=== PATIENT | female | born 2000 | race African-American/Black ===

== ENCOUNTER 2020-04-30 03:01 | Inpatient (IN) | payer MEDICAID ==
[~2020-04-30] VITALS: Ht 170.2 cm; Wt 81.2 kg
[2020-04-30] VITALS (9 sets, daily range): BP systolic 103–166; BP diastolic 56–101; Ht 170.2 cm; Wt 81.2 kg
[2020-04-30 03:27] LABS: UDS - AMPHET NEGATIVE QUAL (NEGATIVE); UDS - BARB NEGATIVE QUAL (NEGATIVE); UDS - BENZO NEGATIVE QUAL (NEGATIVE); UDS - COCAINE NEGATIVE QUAL (NEGATIVE); UDS - OPIATE NEGATIVE QUAL (NEGATIVE); UDS - PCP NEGATIVE QUAL (NEGATIVE); UDS - THC NEGATIVE QUAL (NEGATIVE)
[2020-04-30 03:30] LABS: BILIRUBIN NEGATIVE (NEGATIVE); GLUCOSE NEGATIVE (NEGATIVE); KETONE NEGATIVE (NEGATIVE); NITRITE NEGATIVE (NEGATIVE); SPECIFIC GRAVITY 1.005 (1.005-1.020); UROBILINOGEN NORMAL (NORMAL)
[2020-04-30 03:32] LABS: BACTERIA FEW /hpf (NEGATIVE); EPITHELIAL CELLS 0-5 /hpf (0-5); RED CELLS - URINE 0-5 /hpf (0-5); WHITE CELLS - URINE 0-5 /hpf (NEGATIVE)
[2020-04-30] MEDS ORDERED: PRENAVITE1 TAB PO (04:50)
[2020-04-30 04:53] LABS: CALC OSMOLALITY 270 mosm/kg (275-300); CALCIUM 9.2 mg/dL (8.5-10.1); CARBON DIOXIDE 23.6 mmol/L (21.0-32.0); CHLORIDE - SERUM 101 mmol/L (98-107); CREATININE - SERUM 0.7 mg/dL (0.6-1.3); GLUCOSE 84 mg/dL (74-106); POTASSIUM - SERUM 3.5 mmol/L (3.5-5.1); SODIUM 137 mmol/L (136-145); UREA NITROGEN 8 mg/dL (7-18); eGFR NON AFRICAN AMERICAN > 90 mL/min (90-120)
[2020-04-30 04:59] LABS: ALKALINE PHOSPHATASE 115 U/L (30-120); ALT (SGPT) 43 U/L (10-68); BILIRUBIN - DIRECT 0.05 mg/dL (0.00-0.30); BILIRUBIN - TOTAL 0.15 mg/dL (0.2-1.3); HEMATOCRIT 40.1 % (36.0-48.0); HEMOGLOBIN 13.3 g/dL (12-16); MCH 28.8 pg (26.0-34.0); MCHC 33.2 g/dL (31.0-37.0); MCV 86.8 fL (80.0-100.0); MEAN PLATELET VOLUME 9.8 fL (7.4-10.4); PROTEIN - SERUM 7.4 g/dL (6.4-8.2); RBC 4.62 10x6/uL (4.00-5.40); RDW 16.3 % (11.5-14.5); WBC 6.6 10x3/uL (4.8-10.8)
--- NOTE | 2020-04-30 17:10 | NUR ---
PAIN REASSESSMENT COMPLETED. DENIES PAIN AT THIS TIME. SITTING IN HIGH FOWLERS POSITION ON CELL PHONE. DENIES NEEDS. INFANT IN NBN. PT'S MOTHER REMAINS AT BEDSIDE, SUPPORTIVE AND ATTENTIVE TO PT NEEDS. BED IN LOW POSITION WITH SRUP X2. CALL LIGHT AND PHONE WITHIN REACH. SCD'S ON BLE. WILL CONTINUE TO MONITOR.
--- NOTE | 2020-04-30 17:34 | NUR ---
MGSO4 CHECK PER FLOWSHEET. NEW BAG 1/2 NS HUNG TO CONTINUE TO INFUSE AT 50 MLS/HR VIA PUMP. NBN CONTACTED AND PT GIVEN UPDATE ON INFANT PER HER REQUEST. REQUEST MORE [employer] AND PROVIDED PER REQUEST. BED IN LOW POSITION WITH SRUP X2. CALL LIGHT AND PHONE WITHIN REACH. WILL CONTINUE TO MONITOR.
--- NOTE | 2020-04-30 18:29 | NUR ---
MGSO4 CHECK DONE PER FLOWSHEET. PERICARE DONE, PADS AND CHUX CHANGED. FUNDUS REMAINS FIRM, MIDLINE AND U2 WITH SMALL AMT RUBRA LOCHIA, NO CLOTS NOTED. SCDS ON BLE. TUXS PLACED. DENIES NEEDS AND PAIN. BED IN LOW POSITION WITH SRUP X2. CALL LIGHT AND PHONE WITHIN REACH. LIGHTS OFF.
--- NOTE | 2020-04-30 19:21 | NUR ---
PATIENT RESTING QUIETLY WITH EYES CLOSED, NO DISTRESS NOTED. EASILY AROUSED TO VERBAL. BP WNL, DTR'S +2, RESPIRATIONS EVEN AND NON LABORED, IV SITE REMAINS PATENT, NO REDNESS, SWELLING OR INFILTRATION NOTED. JACK CATHETER NOTED TO HAVE 35 ML CLEAR YELLOW URINE. PT DENIES PAIN OR NEEDS. PERIPAD WITH SMALL AMT OF BLEEDING, NO CLOTS NOTED. SCD'S REMAIN ON BILATERALLY, REMOVED FOR INSPECTION AND REPLACED. MOTHER REMAINS AT BEDSIDE FOR SUPPORT. WILL CONTINUE TO MONITOR.
--- NOTE | 2020-04-30 20:21 | NUR ---
PATIENT RSTING QUIETLY WITH EYES CLOSED, JACK CATHETER DRAINING TO GRAVITY- 185ML CLEAR YELLOW URINE NOTED IN UROMETER. IV REMAINS PATENT AND INFUSING PER MD ORDERS. NO DISTRESS NOTED. WILL CONTINUE TO MONITOR.
--- NOTE | 2020-04-30 21:21 | NUR ---
PATIENT SLEEPING, EASILY AROUSED TO VERBAL. JACK DRAINING TO GRAVITY, 140 ML CLEAR YELLOW URINE NOTED IN UROMETER. REFLEXES +2, RESPIRATIONS EVEN AND NON LABORED. NO NEEDS IDENTIFIED.
--- NOTE | 2020-04-30 21:40 | NUR ---
SPRITE PROVIDED PER PT REQUEST
--- NOTE | 2020-04-30 22:21 | NUR ---
PATIENT LYING ONHER RIGHT SIDE WITH EYES CLOSED AND EVEN RESPIRATIONS. DENIES PAIN OR NEEDS AT THIS TIME. WILL CONTINUE TO MONITOR.
--- NOTE | 2020-04-30 22:59 | NUR ---
SPRITE PROVIDED PER PT REQUEST
--- NOTE | 2020-05-01 00:21 | NUR ---
PATIENT RESTING QUIETLY WITH EYES CLOSED, NO DISTRESS NOTED. EASILY AROUSED TO VERBAL. JACK CATHETER REMOVED AT THIS TIME WITHOUT INCIDENT. 200 ML CLEAR YELLOW URINE NOTED IN UROMETER. VITAL SIGNS WNL, BLEEDING REMAINS SMALL,RUBRA WITH NO CLOTS. IV FLUIDS DISCONTINUED, IV SALINE LOCKED. SCD'S REMOVED AND PATIENT AMBULATORY TO BATHROOM. PERICARE DONE, TUCKS PADS, CLEAN PERIPAD AND PANTIES PLACED. PATIENTS SHEETS CHANGED. PT AMBULATING IN HALLWAY TO NURSERY. PTS MOTHER AT HER SIDE. PTS MOTHER GOT SPRITE AND PUDDING FOR THE PATIENT. PT DENIES PAIN OR OTHER NEEDS AT THIS TIME. WILL CONTINUE TO MONITOR.
--- NOTE | 2020-05-01 01:10 | NUR ---
CODE BLUE BUTTON PULLED BY PATIENTS FAILY MEMBER, STATES THAT SHE WAS TRYING TO TURN ON THE LIGHT. CODE BLUE CANCELLED WITH MARKET SURVEY REPRESENTATIVE. PT SITTING UP IN BED. NO DISTRESS NOTED. NO NEEDS IDENTIFIED. WILL CONTINUE TO MONITOR.
--- NOTE | 2020-05-01 02:59 | NUR ---
PATIENT RESTING QUIETLY WITH EYES CLOSED, RESPIRATIONS EVEN AND NON LABORED, EASILY AROUSED TO VERBAL. INFANT REMAINS IN OPEN CRIB AT BEDSIDE, COLOR PINK, NO DISTRESS NOTED. WHEN ASKED IF THE PT NEEDED ANYTHING SHE REPLIED, "WHEN CAN THE BABT GO BACK TO THE NURSERY?" PT TEACHING DONE ON THE INFANT STAYING IN THE ROOM WITH HER. PT DOESNT REPLY, HITS HER HEAD WITH HER HAND SEVERAL TIMES AND GOES BACK TO SLEEP. PTS MOTHER AT BEDSIDE ASKING IF THERE IS A COVER FOR THE BOTTLE WHEN THE BABY IS DONE SUCKING ON IT. EXPLAINED THAT WHEN THE BABY IS DONE WITH A BOTTLE WE THROW IT AWAY. WILL CONTINUE TO MONITOR.
[2020-05-01 06:47] LABS: BASOPHILS 0.1 % (0-2); EOSINOPHILS 0.5 % (0-7); HEMATOCRIT 34.7 % (36.0-48.0); IMMATURE GRANULOCYTES 0.3 % (0-5); LYMPHOCYTES 18.4 % (15-50); MCH 27.8 pg (26.0-34.0); MCHC 31.7 g/dL (31.0-37.0); MCV 87.8 fL (80.0-100.0); MONOCYTES 12.3 % (2-11); NEUTROPHILS 68.4 % (40-80); PLATELET COUNT 229 10x3/uL (130-400); RBC 3.95 10x6/uL (4.00-5.40); RDW 16.5 % (11.5-14.5)
[2020-05-01 07:02] LABS: WBC 10.8 10x3/uL (4.8-10.8)
[2020-05-01 07:13] LABS: RAPID PLASMA REAGIN Non Reactive (Non Reactive)
[2020-05-01 07:40] VITALS: BP 111/68
--- NOTE | 2020-05-01 07:40 | NUR ---
RECEIVED PT LYING TO RIGHT SIDE IN BED. AWAKE. VSS. HRRR WITHOUT AUDIBLE MURMUR. BBS CLEAR. BS X 4. ABDOMEN SOFT/NON-DISTENDED. FUNDUS FIRM AT U/1. RUBRA LOCHIA SMALL AMT. PT STATES PASSED SMALL CLOT EARLIER IN NIGHT. DENIES HEAVY BLEEDING. PERINEUM WITHOUT EDEMA. NEG HOMANS' SIGN. PPP. NO EDEMA NOTED TO BLE. SL SITE CLEAR. C/O PAIN TO PERINEUM OF "8" ON 0-10 PAIN SCALE. SR UP X 2. CALL LIGHT IN REACH.
--- NOTE | 2020-05-01 07:50 | NUR ---
MOTRIN 600 MG GIVEN PO ORDERED FOR PT C/O PAIN. INSTRUCTED ON MED. VERBALIZES UNDERSTANDING.
--- NOTE | 2020-05-01 11:20 | NUR ---
PT UP TO SHOWER. LINENS PROVIDED.
--- NOTE | 2020-05-01 11:50 | NUR ---
DR MAYER NOTIFIED OF PT MOTHER STATES DR MAYER TOLD PT AND HER THAT PT COULD HAVE MOTRIN AND ANOTHER MED FOR PAIN. DR MAYER STATES TOLD PT SHE COULD HAVE MOTRIN/IBUPROFEN ORDERED. ORDER RECEIVED FOR A ONE TIME PERCOCET 5/325 TABLET.
--- NOTE | 2020-05-01 12:00 | NUR ---
PERCOCET 5/325 GIVEN PO ORDERED FOR PT C/O PAIN TO PERINEUM OF "5" ON 0-10 PAIN SCALE. PT INSTRUCTED ON MED. VERBALIZES UNDERSTANDING.
--- NOTE | 2020-05-01 13:00 | NUR ---
PT SITTING UP IN BED. VISITS WITH MOTHER. DENIES C/O OR NEEDS.
--- NOTE | 2020-05-01 14:30 | NUR ---
PT SITTING UP IN BED. TALKING ON PHONE. DENIES NEEDS OR C/O.
[2020-05-01 16:03] VITALS: BP 125/72
--- NOTE | 2020-05-01 16:03 | NUR ---
PT SITTING UP IN BED. TALKING ON PHONE. VSS. DENIES C/O OR NEEDS.
--- NOTE | 2020-05-01 17:00 | NUR ---
PT MOTHER AT DESK. STATES PT PASSED BLOOD CLOT. THIS NURSE TO ROOM. TENNIS BALL SIZED CLOT NOTED ON PERIPAD. MOD RUBRA LOCHIA NOTED ON PERIPAD. PT STATES HASN'T CHANGED PERIPAD SINCE PT SHOWERED. PT ASSISTED WITH PERICARE. PT DENIES OTHER C/O OR NEEDS.
--- NOTE | 2020-05-01 17:39 | NUR ---
PT SITTING UP IN BED. VISITS WITH MOTHER. DENIES NEEDS. PT HAS RECEIVED ORDERED DIETARY REQUESTS EXCEPT FOR [place] AND [place]. STATES "THAT'S OK THOUGH".
--- NOTE | 2020-05-01 17:43 | MORECARE ---
CASE MANAGEMENT DISCHARGE SUMMARY PATIENT: PETER VILLELA UNIT: [id number] ADM DATE: 04/30/20 AGE: 19 : 89 SEX: F ROOM/BED: D.1273 AUTHOR: JACK DONG PHYSICIAN: REFERRING PHYSICIAN: PINA SONG MD DATE OF SERVICE: 05/01/20 Discharge Plan Patient Name: PETER VILLELA [facility] : 2000 Planned Disposition: Home Anticipated Discharge Date: Discharge Date: Expected LOS: 0 Initial Reviewer: [email or web address] Initial Review Date: 04/30/2020 Generated: 05/01/20 6:42 pm Patient Name: PETER VILLELA Page [phone] at 1743 All edits/amendments must be made on the electronic document DICTATION DATE: 05/01/201741 UTILITY MANAGER: TRISTEN 05/01/201741 RPT#: [id number] DC DATE: STATUS: ADM IN [facility] [address] [place] [address] END OF REPORT
--- NOTE | 2020-05-01 19:07 | NUR ---
RN TO PT BEDSIDE FOR ROUNDING. PT STATES PAIN IS 8/10 TO PERINEAL AREA. DERMAPLAST SPRAY AND TUCKS PADS APPLIED TO AREA, FUNDUS IS FIRM, MIDLINE, 2 BELOW, SCANT RUBRA LOCHIA NOTED, VSS. BED IN LOWEST POSITION, CALL LIGHT IN REACH, SIDE RAILS UPX2.
[2020-05-01 19:16] VITALS: BP 134/76
--- NOTE | 2020-05-01 19:25 | NUR ---
PT TRANSFERRED TO 1218 AT THIS TIME.
[2020-05-02] VITALS (7 sets, daily range): BP systolic 112–134; BP diastolic 64–88
--- NOTE | 2020-05-02 00:02 | NUR ---
RN CALLED TO PT BEDSIDE, PT STATES PAIN IS 8-9/10 TO PERINEAL AREA, PT INFORMED HER MOTRIN IS NOT DUE AT THIS TIME, NON-PHARMACEUTICAL METHODS PROVIDED, TUCKS PADS APPLIED, DERMAPLAST SPRAY APPLIED TO AREA, PT GIVEN AN ICE PACK TO APPLY TO THE AREA. PT REPORTED THAT IT WAS "A LITTLE BETTER". PT'S MOTHER ASKED WHY HER DAUGHTER HAS SO MUCH PAIN TO HER PERINEUM, RN EXPLAINED THE LOCATION OF THE LACERATION THE PT SUSTAINED DURING DELIVERY AND THAT IT WAS REPAIRED. MINIMAL SWELLING NOTED TO PERINEAL AREA.
--- NOTE | 2020-05-02 02:26 | NUR ---
ROUNDING AT THIS TIME, PT SLEEPING. NO NEEDS AT THIS TIME.
--- NOTE | 2020-05-02 04:51 | NUR ---
RN TO PT BEDSIDE FOR ROUNDING, PT STATES PAIN IS 5/10 TO ABDOMEN AND PERINEUM, FUNDUS IS FIRM, MIDLINE, 2 BELOW, SCANT RUBRA LOCHIA, ICE ON, WITCH JN PADS ON, BED IN LOWEST POSITION, CALL LIGHT IN REACH, SIDE RAILS UPX2.
--- NOTE | 2020-05-02 07:01 | NUR ---
BEDSIDE REPORT RECEIVED. PT LYING TO LEFT SIDE. WAKES UPON ENTERING ROOM. DENIES PAIN OR NEEDS AT THIS TIME.
--- NOTE | 2020-05-02 07:30 | NUR ---
PT LYING TO LEFT SIDE. WAKES UPON ENTERING ROOM. VSS. HRRR WITHOUT AUDIBLE MURMUR. BBS CLEAR. BS X 4. ABDOMEN SOFT/NON-DISTENDED. FUNDUS FIRM AT U/2. RUBRA LOCHIA SMALL AMT. PT DENIES HEAVY BLEEDING OR PASSING CLOTS. PERINEUM WITH SLIGHT EDEMA NOTED. PT STATES VOIDING WITHOUT DIFFICULTY. STATES PASSING GAS. DENIES BM. NEG HOMANS' SIGN. PPP. NO EDEMA NOTED TO BLE. SL TO RIGHT WRIST. 22 GAUGE CATHELON NOTED. FLUSHES EASILY WITH 10 ML NS. SITE CLEAR. PT DENIES C/O PAIN OR NEEDS AT THIS TIME. SR UP X 2. CALL LIGHT IN REACH. PT MOTHER IN ROOM CARING FOR AT THIS TIME.
--- NOTE | 2020-05-02 07:45 | NUR ---
PT MOTHER AT DESK. STATES "MY DAUGHTER IS SHAKING". THIS NURSE TO ROOM. PT NOTED TO BE SHIVERING. AAO X 3. RESP NON-LABORED. VS NOTED. SKIN WARM TO TOUCH. PT COVERED IN BLANKETS X 2. BLANKETS REMOVED. PT AND MOTHER INFORMED OF REASON FOR REMOVING BLANKETS DUE TO PT TEMP. WILL NOTIFY DR MAYER.
--- NOTE | 2020-05-02 07:54 | NUR ---
DR MAYER NOTIFIED OF VS AT 0730 AND CURRENT. ORDERS RECEIVED.
--- NOTE | 2020-05-02 08:05 | NUR ---
LAB TO ROOM TO COLLECT ORDERED LABWORK.
--- NOTE | 2020-05-02 08:15 | NUR ---
DR MAYER TO ROOM.
--- NOTE | 2020-05-02 08:28 | NUR ---
PT ERADICATOR LIGHT. THIS NURSE TO ROOM. PT MOTHER REQUESTS AND RECEIVES TOWELS AND WASHCLOTHS. PT REQUESTS AND RECEIVES ICE WATER.
[2020-05-02 09:21] LABS: BASOPHILS 0.1 % (0-2); EOSINOPHILS 0.2 % (0-7); HEMATOCRIT 32.2 % (36.0-48.0); HEMOGLOBIN 10.4 g/dL (12-16); IMMATURE GRANULOCYTES 0.3 % (0-5); LYMPHOCYTES 6.2 % (15-50); MCH 28.3 pg (26.0-34.0); MCHC 32.3 g/dL (31.0-37.0); MCV 87.5 fL (80.0-100.0); MEAN PLATELET VOLUME 9.7 fL (7.4-10.4); MONOCYTES 9.6 % (2-11); NEUTROPHILS 83.6 % (40-80); PLATELET COUNT 212 10x3/uL (130-400); RBC 3.68 10x6/uL (4.00-5.40); RDW 16.3 % (11.5-14.5)
[2020-05-02 09:28] LABS: WBC 15.5 10x3/uL (4.8-10.8)
--- NOTE | 2020-05-02 09:30 | NUR ---
PT LYING TO LEFT SIDE IN BED. EYES CLOSED. RESP NON-LABORED. SR UP X 2. CALL LIGHT IN REACH. PT MOTHER IN ROOM, FEEING AT THIS TIME.
--- NOTE | 2020-05-02 10:42 | NUR ---
PT LYING TO RIGHT SIDE IN BED. WAKES UPON VERBAL STIMULATION. TEMP CHECKED AND NOTED. ROOM TEMP NOTED TO BE WARM. 2 BLANKETS REMOVED FROM PT.
--- NOTE | 2020-05-02 10:45 | NUR ---
DR MAYER NOTIFIED OF PT TEMP AND CBC RESULTS. ORDERS RECEIVED.
--- NOTE | 2020-05-02 10:59 | NUR ---
MOTRIN 600 MG GIVEN PO. ICE PACK PLACED UNDER PT ARMPITS AT THIS TIME. BLANKETS REMOVED FROM PT. TOP SHEET LEFT OVER PT. PT MOTHER ENCOURAGED TO TURN TEMP ON THERMOSTAT DOWN TO COOL DOWN ROOM. PT MOTHER STATES "IT SAYS ITS ON 70 DEGREES".
--- NOTE | 2020-05-02 11:15 | NUR ---
PT PROVIDED WITH BREAST PUMP. PT INSTRUCTED ON USE OF PUMP. PT STATES DESIRE TO NO LONGER BREASTFEED AND USE PUMP ONCE TO EXPRESS ENGORGED BREASTS. PT DEMONSTRATES UNDERSTANDING OF USE OF BREAST PUMP. PT MOTHER ASSISTING PT.
--- NOTE | 2020-05-02 11:51 | NUR ---
GENTAMYCIN 120 MG STARTED IVPB VIA ALARIS PUMP. SL FLUSHED EASILY WITH 10 ML NST. SITE CLEAR. PT INSTRUCTED ON MED. VERBALIZES UNDERSTANDING.
--- NOTE | 2020-05-02 12:00 | NUR ---
RECEIVED CLAUDETTE BANDAGE FROM CENTRAL SUPPLY. PT SITS UP ON SIDE OF BED. PT HAS PERSONAL BRA ON. BREAST PADS PLACED INSIDE BRA. PT BREASTS WRAPPED IN CLAUDETTE BANDAGE. PT INSTRUCTED ON PURPOSE. VERBALIZES UNDERSTANDING.
--- NOTE | 2020-05-02 12:29 | NUR ---
PT RINGS CALL LIGHT. THIS RN TO BEDSIDE. PT STATES " I DON'T THINK ANYTHING IS GOING THROUGH MY IV. I CAN'T SEE IT RUNNING." IV ACCESS, LINE AND ANTIBIOTIC INDUSION INSPECTED. IV SITE IS PATENT. IV LINE CONNECTED. ANTIBIOTIC GENT. INFUSING VIA IV PUMP AT THIS TIME. PT REASSURED THAT IV IS INFUSING APPROPRIATELY. Savannah DICKINSON RN TO ROOM. INFORMED OF PT'S QUESTIONS AND THIS RN'S ACTIONS.
--- NOTE | 2020-05-02 12:57 | NUR ---
GENTAMYCIN COMPLETED. AMPICILLIN 2 GRAMS UP AT THIS TIME. PIV SITE CLEAR.
--- NOTE | 2020-05-02 13:31 | NUR ---
AMPICILLIN COMPLETED. CLINDAMYCIN 900 MG UP VIA ALARIS PUMP. PIV SITE CLEAR. PT TOLERATING WELL.
--- NOTE | 2020-05-02 14:30 | NUR ---
CLINDAMYCIN COMPLETED. PIV CONVERTED TO SALINE LOCK. FLUSHES EASILY WITH 10 ML NS. SITE CLEAR. PT UP TO SHOWER AT THIS TIME. PT MOTHER ASSISTS PT WITH SHOWER.
--- NOTE | 2020-05-02 15:06 | NUR ---
PT FINISHED WITH SHOWER. TEMP-98.2. STATES BOO SHOWER WELL. STATES REPLACED BRA AND CLAUDETTE BANDAGE WRAP TO BREASTS.
--- NOTE | 2020-05-02 16:45 | NUR ---
PT LYING TO LEFT SIDE IN BED. WAKES UPON VERBAL STIMULATION. VSS. PT DENIES C/O. REGULAR DIET SERVED.
--- NOTE | 2020-05-02 18:03 | NUR ---
SL FLUSHES EASILY WITH 10 ML NS. SITE CLEAR. AMPICILLIN 2 GRAMS STARTED IVPB VIA ALARIS PUMP.
--- NOTE | 2020-05-02 18:43 | NUR ---
AMPICILLIN COMPLETED. GENTAMYCIN 80 MG STARTED AT THIS TIME. PIV SITE CLEAR.
--- NOTE | 2020-05-02 19:00 | NUR ---
REPORT GIVEN BY MERLY CHAVARRIA
--- NOTE | 2020-05-02 20:00 | NUR ---
ASSESSMENT COMPLETED. PT IS LAYING IN BED PLAYING WITH HER PHONE. THE BABY IS IN THE CRIB AT BEDSIDE. FUNDUS IS FIRM. PT IS GETTING UP TO THE BATHROOM WITHOUT HELP. HER LOCHIA IS MODERATE. SHE STATES SHE HAS NO PROBLEMS WITH URINATION. HEART SOUNDS WNL AND LUNGS SOUND CLEAR.
--- NOTE | 2020-05-02 20:43 | NUR ---
PT ASKED FOR A MOTRIN. MOTRIN 600 MG WAS GIVEN PO. PT HAS NO OTHER NEEDS AT THIS TIME.
--- NOTE | 2020-05-02 22:00 | NUR ---
PT IS RESTING QUIETLY IN BED. NO C/O
--- NOTE | 2020-05-03 | NUR ---
PT IS RESTING WITH HER EYES CLOSED
--- NOTE | 2020-05-03 02:00 | NUR ---
PT IN ROOM HOLDING BABY AND TALKING TO HIM. NO C/O
--- NOTE | 2020-05-03 03:50 | NUR ---
LAB CALLED STATING THAT PT BLOOD CULTURES WER POSITIVE FOR GRAM POSITIVE RODS.
[2020-05-03 05:24] LABS: BASOPHILS 0.2 % (0-2); EOSINOPHILS 0.8 % (0-7); HEMATOCRIT 32.8 % (36.0-48.0); HEMOGLOBIN 10.6 g/dL (12-16); IMMATURE GRANULOCYTES 0.5 % (0-5); LYMPHOCYTES 8.4 % (15-50); MCH 28.3 pg (26.0-34.0); MCHC 32.3 g/dL (31.0-37.0); MCV 87.7 fL (80.0-100.0); MEAN PLATELET VOLUME 9.2 fL (7.4-10.4); NEUTROPHILS 79.1 % (40-80); PLATELET COUNT 209 10x3/uL (130-400); RBC 3.74 10x6/uL (4.00-5.40); RDW 16.5 % (11.5-14.5); WBC 11.8 10x3/uL (4.8-10.8)
--- NOTE | 2020-05-03 05:51 | NUR ---
CLINDAMYCIN 900 MG HUNG ON PT PER DR. MAYER'S ORDER. THIS MEDICATION WILL BE GIVEN EVERY 8 HOURS.
[2020-05-03 07:45] VITALS: BP 127/87
--- NOTE | 2020-05-03 07:45 | NUR ---
PT SITTING UP IN BED. ON PHONE. PT MOTHER CARING FOR . PT STATES ATE BREAKFAST. DENIES PAIN. AAO X 3. VSS. HRRR WITHOUT AUDIBLE MURMUR. BBS CLEAR. BS X 4. ABDOMEN SOFT/NON-DISTENDED. FUNDUS FIRM AT U/2. RUBRA LOCHIA SMALL AMT. PERINEUM WITHOUT EDEMA. NEG HOMANS' SIGN. PPP. NO EDEMA NOTED TO BLE. SL TO RIGHT WRIST. 22 GAUGE CATHELON NOTED. SITE CLEAR. PT STATES VOIDING WITHOUT DIFFICULTY. STATES PASSING GAS AND HAD BM YESTERDAY. PT DENIES HEADACHE, VIS PROBLEMS, EPIG OR RUQ PAIN. BREASTS FILLING. PT BRA ON AND BREASTS WRAPPED IN CLAUDETTE BANDAGE. PT STATES BREASTS TENDER. NO REDNESS NOTED TO BREASTS. PT DENIES PAIN OR NEEDS. SR UP X 2. CALL LIGHT IN REACH.
--- NOTE | 2020-05-03 08:10 | NUR ---
PT HOSPICE OFFICE COORDINATOR LIGHT. REQUESTS AND RECEIVES PANTIES AND PADS.
--- NOTE | 2020-05-03 08:45 | NUR ---
PT ASSOCIATE ENGINEER LIGHT. REQUESTS AND RECEIVES TOILET PAPER.
--- NOTE | 2020-05-03 09:09 | NUR ---
PT AMBULATORY TO DESK. PT MOTHER HOLDING IN ARMS. PT AND MOTHER INFORMED THAT INFANT TO BE TRANSPORTED IN OPEN CRIB. PT MOTHER ASKS IF PT AND INFANT CAN GO TO [place]. INFORMED OF INFANT SECURITY POLICY. VERBALIZE UNDERSTANDING.
--- NOTE | 2020-05-03 09:11 | NUR ---
PT AMBULATORY FROM WAITING AREA BACK TO ROOM. PT STATES BOO ACTIVITY WELL. PT SMILING.
--- NOTE | 2020-05-03 11:01 | NUR ---
DR MELO VISITS WITH PT AND PT MOTHER. DISCUSSES POC WITH PT AND PT MOTHER.
--- NOTE | 2020-05-03 12:03 | NUR ---
AMPICILLIN 2 GRAMS UP VIA ALARIS PUMP. SL FLUSHES EASILY WITH 10 ML NS. SITE CLEAR. REGULAR DIET SERVED.
[2020-05-03 13:30] VITALS: BP 136/85
--- NOTE | 2020-05-03 13:45 | NUR ---
PT SITTING UP IN BED. HOLDS . TALKING ON PHONE. PT MOTHER REQUESTS AND RECEIVES TOWELS AND WASHCLOTHS.
--- NOTE | 2020-05-03 14:58 | NUR ---
PT AMBULATORY IN HALLS. BOO ACTIVITY WELL. REQUESTS AND RECEIVES MOTRIN 600 MG PO ORDERED.
--- NOTE | 2020-05-03 15:33 | NUR ---
PT AMBULATORY TO DESK. REQUESTS CABBAGE PLACED IN FRIG. PT STATES PUT CABBAGE LEAVES TO BREASTS TO RELIEVE SWELLING.
--- NOTE | 2020-05-03 19:00 | NUR ---
REPORT GIVEN BY MERLY CHAVARRIA.
--- NOTE | 2020-05-03 19:45 | NUR ---
ASSESSMENT COMPLETED. PT IS A LITTLE SULLEN THIS EVENING. NO SMILES FROM HER. SHE DOES NOT C/O OF PAIN AT THIS TIME. SHE HAS CABBAGE LEAVES ON HER BREAST TO HELP THEM DRY UP. HER BREAST ARE BOUND. PT IS AMBULATORY IN ROOM AND IN HALLS. SKIN IS WARM AND DRY. HEART SOUNDS WNL. LUNGS CLEAR. LOCHIA SMALL. VOIDING WELL AND HAD A BM TODAY. SHE CONT ON ALL HER ANTIBIOTICS. IV SITE LOOKS GOOD. NO REDNESS NOTED. IV PATENT. PT MOTHER AT BEDSIDE.
[2020-05-03 20:00] VITALS: BP 109/69
--- NOTE | 2020-05-03 20:00 | NUR ---
NOTED THAT BP WAS ELEVATED. WILL RETAKE TO SEE IF ITS STILL HIGH. BP WAS 148/99.
[2020-05-03 20:45] VITALS: BP 148/99
--- NOTE | 2020-05-03 21:00 | NUR ---
BP CONT TO BE ELEVATED. BP IS NOW 157/105
[2020-05-03 22:00] VITALS: BP 157/105
--- NOTE | 2020-05-03 22:25 | NUR ---
PT C/O PAIN IN HER BREAST. MOTRIN WAS GIVEN PO FOR HER PAIN.
--- NOTE | 2020-05-03 22:45 | NUR ---
CALLED DR. MELO. LET HIM KNOW OF PT. ELEVATED BP. HE ORDERED CATAPRES 0.1 MG BID AND [facility].
[2020-05-03 23:27] LABS: BASOPHILS 0.2 % (0-2); HEMATOCRIT 31.1 % (36.0-48.0); IMMATURE GRANULOCYTES 0.5 % (0-5); LYMPHOCYTES 16.6 % (15-50); MCHC 32.2 g/dL (31.0-37.0); MCV 87.1 fL (80.0-100.0); MEAN PLATELET VOLUME 9.4 fL (7.4-10.4); MONOCYTES 13.2 % (2-11); NEUTROPHILS 67.5 % (40-80); PLATELET COUNT 212 10x3/uL (130-400); RBC 3.57 10x6/uL (4.00-5.40); RDW 16.4 % (11.5-14.5); WBC 9.8 10x3/uL (4.8-10.8)
--- NOTE | 2020-05-03 23:27 | NUR ---
CATAPRES 0.1 MG GIVEN PO TO PT. WILL BE RECHECKING. PT HAS NO C/O AT THIS TIME AND NO NEEDS.
[2020-05-03 23:30] LABS: CALC OSMOLALITY 274 mosm/kg (275-300); CALCIUM 8.3 mg/dL (8.5-10.1); CARBON DIOXIDE 22.8 mmol/L (21.0-32.0); CHLORIDE - SERUM 104 mmol/L (98-107); CREATININE - SERUM 0.7 mg/dL (0.6-1.3); GLUCOSE 105 mg/dL (74-106); POTASSIUM - SERUM 3.9 mmol/L (3.5-5.1); SODIUM 138 mmol/L (136-145); UREA NITROGEN 11 mg/dL (7-18); eGFR NON AFRICAN AMERICAN > 90 mL/min (90-120)
[2020-05-03 23:36] LABS: ALBUMIN 2.4 g/dL (3.4-5.0); ALKALINE PHOSPHATASE 86 U/L (30-120); ALT (SGPT) 82 U/L (10-68); BILIRUBIN - DIRECT 0.04 mg/dL (0.00-0.30); BILIRUBIN - INDIRECT 0.17 mg/dL (0.00-1.00); BILIRUBIN - TOTAL 0.21 mg/dL (0.2-1.3); PROTEIN - SERUM 6.4 g/dL (6.4-8.2); URIC ACID 5.1 mg/dL (2.6-7.2)
[2020-05-04] VITALS (9 sets, daily range): BP systolic 135–148; BP diastolic 84–93
--- NOTE | 2020-05-04 00:15 | NUR ---
BP 135/91 PT IS AWAKE IN HER ROOM. NO C/O AT THIS TIME
--- NOTE | 2020-05-04 02:30 | NUR ---
PT IS SLEEPING IN HER ROOM. NO C/O OR NEW NEEDS AT THIS TIME
--- NOTE | 2020-05-04 04:15 | NUR ---
BP IS NOW 141/90. PT IS SLEEPING
--- NOTE | 2020-05-04 05:26 | NUR ---
PT SLEEPING IN HER ROOM. BABY IN CRIB.
--- NOTE | 2020-05-04 07:40 | NUR ---
ASSESSMENT DONE- PT RESTING IN BED. FUNDUS U2/FIRM. SCANT LOCHIA NOTED ON PAD. DENIES NEEDS.
--- NOTE | 2020-05-04 09:10 | NUR ---
DR MELO HERE TO SEE PT- STATES WAITING ON CULTURE REPORTS.
--- NOTE | 2020-05-04 10:33 | NUR ---
RESTING- VS DONE. NO REQUESTS.
--- NOTE | 2020-05-04 10:59 | NUR ---
RESTING IN BED- NO REQUESTS.
--- NOTE | 2020-05-04 12:57 | NUR ---
SITTING UP IN BED-EATING LUNCH. VS DONE.
--- NOTE | 2020-05-04 17:23 | NUR ---
REPORT OF TEMP OF 100.[address] MELO- NEW ORDERS RECEIVED.
--- NOTE | 2020-05-04 17:24 | NUR ---
AMBULATING IN [facility] 99.4.
[2020-05-04 18:26] LABS: BASOPHILS 0.1 % (0-2); EOSINOPHILS 1.5 % (0-7); HEMATOCRIT 31.9 % (36.0-48.0); HEMOGLOBIN 10.4 g/dL (12-16); IMMATURE GRANULOCYTES 0.8 % (0-5); LYMPHOCYTES 20.4 % (15-50); MCHC 32.6 g/dL (31.0-37.0); MEAN PLATELET VOLUME 9.7 fL (7.4-10.4); MONOCYTES 13.6 % (2-11); NEUTROPHILS 63.6 % (40-80); PLATELET COUNT 235 10x3/uL (130-400); RBC 3.71 10x6/uL (4.00-5.40); WBC 7.3 10x3/uL (4.8-10.8)
[2020-05-04 18:52] LABS: BILIRUBIN NEGATIVE (NEGATIVE); EPITHELIAL CELLS OCC /hpf (0-5); GLUCOSE NEGATIVE (NEGATIVE); KETONE NEGATIVE (NEGATIVE); NITRITE NEGATIVE (NEGATIVE); SPECIFIC GRAVITY 1.015 (1.005-1.020); UROBILINOGEN NORMAL (NORMAL); WHITE CELLS - URINE >50 /hpf (NEGATIVE)
[2020-05-04 18:53] LABS: BACTERIA FEW /hpf (NEGATIVE)
--- NOTE | 2020-05-04 19:23 | NUR ---
PATIENT RESTING IN BED WITH NO S/S OF DISTRESS. PATIENT DENIES NEEDS AT THIS TIME. BED IN LOWEST POSITION AND CALL LIGHT WITHIN REACH. ENCOURAGED THE PATIENT TO CALL IF SHE HAS NEEDS. WILL CONTINUE TO MONITOR.
--- NOTE | 2020-05-05 03:00 | NUR ---
PATIENT RESTING IN BED WITH EYES CLOSED AND NO S/S OF DISTRESS. GUEST HOLDING INFANT IN CHAIR AND DENIES NEEDS AT THIS TIME. BED IN LOWEST POSITION AND CALL LIGHT WITHIN REACH. WILL CONTINUE TO MONITOR.
[2020-05-05 04:18] VITALS: BP 149/97
[2020-05-05 07:50] VITALS: BP 159/96
--- NOTE | 2020-05-05 07:50 | NUR ---
AM ASSESSMENT COMPLETED, BP ELEVATED, AFEBRILE. LUNGS CTAB, HEART RRR, ABD SOFT, NONTENDER, FF AT U/3 AND MIDLINE, LOCHIA SCANT, PT REPORTS +FLATUS, VOIDING WITHOUT DIFFICULTY, [place] FREELY, NEGATIVE HARRIS'S SIGN B TERRIE, REVIEWED POC FOR TODAY TO INCLUDE AMBULATION IN HALLWAYS, USE OF INCENTIVE SPIROMETRY, BONDING WITH , PT AND PT MOTHER AT VOICE UNDERSTANDING OF POC FOR TODAY. C/L IN EASY REACH OF PT, BED IN LOW POSITION, BED BRAKES LOCKED, SR UP X2. WILL MONITOR FOR CHANGE IN CONDITION.
--- NOTE | 2020-05-05 08:20 | NUR ---
AMBULATORY IN HALLS, PT SMITAQUERIA, NAD NOTED. WILL MONITOR.
--- NOTE | 2020-05-05 09:38 | NUR ---
scheduled bp meds given with sips water, cup of ice water provided. pt demonstrating use of incentive spirometry with good effort. continue to monitor.
--- NOTE | 2020-05-05 10:06 | NUR ---
phoned dr deras with blood culture results at 72 hours, no growth. dr deras states pt can go home once 24 hours afebrile after 1600 today. relayed information to pt; pt states understanding of all information.
[2020-05-05 11:15] VITALS: BP 155/105
--- NOTE | 2020-05-05 11:55 | NUR ---
phoned dr deras regarding elevated bp x2 today; new order received to increase clonidine 0.1mg po to tid and to ensure meds phoned into pt's pharmacy of choice. noted and relayed to pt.
--- NOTE | 2020-05-05 12:42 | NUR ---
rounds completed, denies needs or concerns, resp even and unlabored, using incentive spirometry with up to 2000ml inspired volume noted. continue to monitor.
[2020-05-05] MEDS ORDERED: CATAPRES0.1 MG PO (13:03)
--- NOTE | 2020-05-05 13:13 | NUR ---
rounds completed, relayed that discharge medications have been called into [facility] in [facility] so that her sister can worm picker her medications for her prior to closing today. pt states understanding and voices appreciation. nad noted, will monitor.
--- NOTE | 2020-05-05 14:38 | NUR ---
rounds completed, nad noted, ambulatory in room. voices no needs or concerns at this time, will continue to monitor.
--- NOTE | 2020-05-05 15:14 | NUR ---
ambulatory in halls; no needs or concerns voiced. will continue to monitor.
--- NOTE | 2020-05-05 15:52 | NUR ---
saline lock to right wrist discontinued per pt request. catheter tip intact, tolerates procedure.
[2020-05-05 16:06] VITALS: BP 156/95
--- NOTE | 2020-05-05 16:18 | NUR ---
PT AFEBRILE ON VS CHECK. BP REMAIN STABLE AND ELEVATED, PT VOICES DESIRE TO GO HOME SOON POSSIBLE. DISCHARGE INSTRUCTIONS REVIEWED WITH PT AND PT MOTHER, QUESTIONS ANSWERED, HANDOUTS PROVIDED FOR REVIEW ONCE AT HOME, ENCOURAGED PT TO KEEP BLOOD PRESSURE LOG, TAKEN TWICE DAILY AT THE SAME TIME EACH DAY FOR NEXT WEEK AND TAKE TO FIRST FOLLOW UP APPOINTMENT WITH DR MAYER FOR 1 WEEK FOLLOW UP. PT STATES UNDERSTANDING, DENIES NEEDS/CONCERNS/QUESTIONS FOR THIS RN BUT DOES ASK WHEN NURSERY STAFF WILL BE AVAILABLE TO DISCHARGE TO HOME. RELAYED THAT THIS RN WOULD NOTIFY NURSERY STAFF, JEAN-PIERRE MORELAND TO COMPLETE DISCHARGE FOR RELEASE HOME. PT STATES THIS IS SATISFACTORY TO HER. WILL MONITOR.
--- NOTE | 2020-05-05 17:10 | NUR ---
pt discharged via w/c to private auto per jameson huerta rn with all personal belongings and secured in carseat carrier. nad noted, stable condition.
--- NOTE | 2020-05-06 09:38 | MORECARE ---
CASE MANAGEMENT DISCHARGE SUMMARY PATIENT: PETER VILLELA UNIT: [id number] ADM DATE: 04/30/20 AGE: 19 : 89 SEX: F ROOM/BED: D.1218 AUTHOR: JACK DONG PHYSICIAN: REFERRING PHYSICIAN: PINA SONG MD DATE OF SERVICE: 05/06/20 Discharge Plan Patient Name: PETER VILLELA [facility] [facility] 2000 Planned Disposition: Home Anticipated Discharge Date: Discharge Date: 05/05/2020 Expected LOS: 0 Initial Reviewer: [id number] Initial Review Date: 04/30/2020 Generated: 05/06/20 10:38 am Last DP export: 05/01/20 4:43 pm Patient Name: PETER VILLELA Page [id number] at 0938 All edits/amendments must be made on the electronic document DICTATION DATE: 05/06/20937 [employer] REPRESENTATIVE: DM 05/06/20937 RPT#: [id number] DC DATE:05/05/20 STATUS: DIS IN [facility] [address] [place] [address] END OF REPORT
== END 2020-05-05 17:10 | disposition home or self-care (01) | DRG 806 ==
LOC: D.LDO 03:01 → D.LD 03:50 → D.WS 03:50 → D.LD 16:38 → D.WS 05-01 19:31
PROVIDERS: Obstetrics & Gynecology; Student in an Organized Health Care Education/Training Program; ADMIT Obstetrics & Gynecology; ATTEND Obstetrics & Gynecology
PROC: 10E0XZZ Delivery of Products of Conception, External Approach (ICD-10-PCS; principal; 2020-04-30)
PROC: 0HQ9XZZ Repair Perineum Skin, External Approach (ICD-10-PCS; 2020-04-30)
PROC: 0UQMXZZ Repair Vulva, External Approach (ICD-10-PCS; 2020-04-30)
DX: O14.14 Severe pre-eclampsia complicating childbirth (principal); R78.81 Bacteremia; Z37.0 Single live birth; Z3A.39 39 weeks gestation of pregnancy; O13.4 Gestational [pregnancy-induced] hypertension without significant proteinuria, complicating childbirth; O70.0 First degree perineal laceration during delivery; O92.79 Other disorders of lactation; O86.89 Other specified puerperal infections

== ENCOUNTER → 2020-07-09 09:47 | Outpatient (CLI) | payer MEDICAID ==
[~2020-07-09 09:47] MED LIST: CATAPRES0.1 MG PO; PRENAVITE1 TAB PO
== END | disposition home or self-care (01) ==
LOC: D.US 09:47
PROVIDERS: ATTEND Student in an Organized Health Care Education/Training Program
DX: R10.11 Right upper quadrant pain (principal)